=== PATIENT | female | born 1995 ===

== ENCOUNTER 2017-12-20 01:03 | Emergency (ER) | payer OTHER ==
[2017-12-20 01:16] VITALS: BMI 27.4
[2017-12-20 01:22] VITALS: RESP 18; TEMP 99.5; O2SAT 100
--- NOTE | 2017-12-20 01:28 | ED PDOC ---
Arrival/HPI - General Chief Complaint: Bite Time Seen by Provider: 12/20/17 01:25 Historian: Patient - History of Present Illness Narrative History of Present Illness (Text): 12/20/17 01:34 22 year old female, with no significant medical history, who presents to the Emergency department status post cat bite to left hand prior to arrival. Patient states she was attempting [place] stray [place] the park and the cat bit her on the left hand. Patient reports cat was taken by Animal Control, who will quarantine the cat, and was instructed to follow up with report tomorrow. Patient believes the cat was a domestic cat. Patient denies any fever , chills, nausea, vomiting, headache, dizziness, or any other complaints. Time/Duration: Prior to Arrival Symptom Onset: Sudden Symptom Course: Unchanged Activities at Onset: Light Context: Other (Park) Past Medical History - Provider Review Nursing Documentation Reviewed: Yes - Psychiatric Hx Substance Use: No - Surgical History Other/Comment: Lasik sx - both eyes - Anesthesia Hx Anesthesia: Yes Hx Anesthesia Reactions: No Hx Malignant Hyperthermia: No Family/Social History - Physician Review Nursing Documentation Reviewed: Yes Family/Social History: Unknown Family HX Smoking Status: Never Smoked Hx Alcohol Use: Yes Frequency of alcohol use: Socially Hx Substance Use: No Allergies/Home Meds Allergies/Adverse Reactions: Allergies pollen extracts Allergy (Verified 12/20/17 01:16) RASH Review of Systems - Physician Review All systems were reviewed & negative as marked: Yes - Review of Systems Eyes: Normal Respiratory: absent: SOB, Cough Cardiovascular: absent: Chest Pain Gastrointestinal: absent: Nausea, Vomiting Genitourinary Female: Normal Musculoskeletal: Normal. absent: Back Pain, Neck Pain Skin: Other (+animal bite to left hand) Neurological: absent: Headache, Dizziness (a cat bite on left hand) Psychiatric: Normal Physical Exam Vital Signs Reviewed: Yes Vital Signs Temp Pulse Resp BP Pulse Ox 12/20/17 01:21 99.5 F 89 18 116/65 100 Temperature: Afebrile Blood Pressure: Normal Pulse: Regular Respiratory Rate: Normal Appearance: Positive for: Well-Appearing, Non-Toxic, Comfortable Pain Distress: None Mental Status: Positive for: Alert and Oriented X 3 - Systems Exam Head: Present: Atraumatic Pupils: Present: PERRL Extroacular Muscles: Present: EOMI Conjunctiva: Present: Normal Mouth: Present: Moist Mucous Membranes Neck: Present: Normal Range of Motion. No: Meningeal Signs, MIDLINE TENDERNESS Back: No: CVA Tenderness, Midline Tenderness Upper Extremity: Present: Normal ROM, NORMAL PULSES, Neurovascularly Intact, Capillary Refill < 2s, Other (abrasion to left hand and tiny puncture wound on dorsal aspect of left hand). No: Cyanosis, Edema, Tenderness, Swelling, Erythema, Temperature Abnormalties, Deformity Lower Extremity: Present: Normal Inspection. No: Edema Neurological: Present: GCS=15, CN II-XII Intact, Speech Normal, Motor Func Grossly Intact, Normal Sensory Function, Normal Cerebellar Funct Skin: Present: Warm, Dry, Normal Color. No: Rashes Psychiatric: Present: Alert, Oriented x 3, Normal Insight, Normal Concentration Medical Decision Making ED Course and Treatment: 12/20/17 01:35 Impression: 22 year old female presenting to the Emergency department complaining of a cat bite to left hand. Plan: -- TDAP vaccine -- Augmentin -- Reassess and disposition Progress Notes: - Medication Orders Current Medication Orders: Discontinued Medications Amoxicillin/Clavulanate Potassium (Augmentin 875 Mg-125 Mg Tab) 1 tab PO ONCE STA PRN Reason: Protocol Stop: 12/20/17 01:37 Last Admin: 12/20/17 01:53 Dose: 1 tab Tetanus/Reduced Diphtheria/Acell Pertussis (Boostrix Vaccine Inj) 0.5 ml IM .ONCE ONE Stop: 12/20/17 01:37 Last Admin: 12/20/17 01:54 Dose: 0.5 ml - Scribe Statement The provider has reviewed the documentation as recorded by the Mikayla Michele training under Diana Santos All medical record entries made by the Shalomibberhane were at my direction and personally dictated by me. I have reviewed the chart and agree that the record accurately reflects my personal performance of the history, physical exam, medical decision making, and the department course for this patient. I have also personally directed, reviewed, and agree with the discharge instructions and disposition. Disposition/Present on Arrival - Present on Arrival Any Indicators Present on Arrival: No History of DVT/PE: No History of Uncontrolled Diabetes: No Urinary Catheter: No History of Decub. Ulcer: No History Surgical Site Infection Following: None - Disposition Have Diagnosis and Disposition been Completed?: Yes Diagnosis: Abrasion, Cat bite of hand Disposition: HOME/ ROUTINE Disposition Time: 02:13 Patient Plan: Discharge Condition: GOOD Discharge Instructions (ExitCare): Skin Abrasions (DC), Animal Bites (DC) Additional Instructions: Keep area clean and dry/take meds as prescribed/follow up with animal control as scheduled/follow up with your doctor/any sign of infection return to the emergency room Prescriptions: Amoxicillin/Clavulanate [Augmentin 875 MG-125 MG] 1 tab PO BID #20 tab Bacitracin Ointment [Bacitracin] 30 gm TOP BID #30 tube Forms: [employer] (Slovak)
[2017-12-20] MEDS ORDERED: Amoxicillin-Clav 875-125 mg Tab PO STA (01:36)
[2017-12-20] MEDS ORDERED: TDAP Vaccine 0.5 mL Syr IM ONE (01:36)
[2017-12-20 02:28] VITALS: BP 115/78; PULSE 85
== END 2017-12-20 02:20 | disposition home or self-care (01) ==
LOC: ED 01:03 → MERGE 01:03 → ED 02:20
DX: S60.512A Abrasion of left hand, initial encounter (principal); W55.01XA Bitten by cat, initial encounter; Z23 Encounter for immunization